=== PATIENT | male | born 1985 | race Caucasian/White ===

== ENCOUNTER 2020-11-19 10:56 | Outpatient (REF) | payer OTHER, SELFPAY ==
[2020-11-19 13:16] LABS: MANUAL DIFF FLAG NO
[2020-11-19 13:36] LABS: Basophils Percent Auto 0.8 % (0-2); Eosinophils Absolute Auto 0.1 X10*3/uL (0.0-0.4); Eosinophils Percent Auto 2.4 % (0-4); Hematocrit 40.9 % (42-52); Hemoglobin 13.7 g/dl (14.0-18.0); Imm Gran Abs Auto 0.01 X10*3/uL (0.00-0.03); Imm Gran Pct Auto 0.3 % (0.0-0.4); Mean Corpuscular HGB Conc 33.5 g/dl (31.0-36.0); Mean Corpuscular Hemoglobin 32.7 pg (27.0-33.0); Mean Corpuscular Volume 97.6 fL (80-98); Mean Platelet Volume 10.3 fL (9.4-12.4); Monocytes Absolute Auto 0.4 X10*3/uL (0.1-1.2); Monocytes Percent Auto 9.9 % (2-11); Neutrophils Absolute Auto 2.2 X10*3/uL (2.0-8.3); Neutrophils Percent Auto 58.6 % (45-73); Platelet Count 289 X10*3/uL (160-400); Red Blood Count 4.19 X10*6/uL (4.60-5.80); White Blood Count 3.7 X10*3/uL (4.8-10.8)
[2020-11-19 13:55] LABS: Alanine Aminotransferase 101 U/L (0-40); Alkaline Phosphatase 42 U/L (39-117); Anion Gap 20 (12-20); Aspartate Amino Transferase 69 U/L (5-37); Bilirubin Total 1.1 mg/dL (0.0-1.0); Blood Urea Nitrogen 5 mg/dL (9-16); C Reactive Protein 0.24 mg/dL (< or = 0.50); Calcium 9.6 mg/dL (8.4-10.2); Carbon Dioxide 18 mmol/L (22-29); Chloride 106 mmol/L (96-108); Estimated Glomerular Filt Rate > 60; Glucose Random 67 mg/dL (60-115); Potassium 3.8 mmol/L (3.3-5.1); Sodium 140 mmol/L (135-145); Total Protein 7.6 g/dL (6.5-8.0)
[2020-11-19 14:11] LABS: Free T4 (Free Thyroxine) 0.94 ng/dL (0.71-1.85); Thyroid Stimulating Hormone 0.54 uIU/mL (0.32-4.0)
[2020-11-24 15:51] LABS: Testosterone, Free 102.7 pg/mL (35.0-155.0); Testosterone, Total 590 ng/dL (250-1100)
== END 2020-11-19 10:57 | disposition home or self-care (01) ==
LOC: HO.10HDL 10:56
PROVIDERS: Visit Provider Internal Medicine
DX: E29.1 Testicular hypofunction (principal); R05 Cough; R00.2 Palpitations
CPT/HCPCS: 36415; 80053; 84146; 84402; 84403; 84439; 84443; 85025; 86140

== ENCOUNTER 2020-12-18 08:02 | Outpatient (REF) | payer OTHER, SELFPAY ==
[2020-12-19 20:41] LABS: Prolactin 32.4 ng/mL (2.0-18.0)
== END 2020-12-18 08:03 | disposition home or self-care (01) ==
LOC: HO.10HDL 08:02
PROVIDERS: PCP Internal Medicine; Visit Provider Internal Medicine
DX: E22.1 Hyperprolactinemia (principal)
CPT/HCPCS: 36415; 84146

== ENCOUNTER 2021-01-03 17:48 | Outpatient (REF) | payer OTHER, SELFPAY ==
--- NOTE | ~2021-01-03 | MR_ITS ---
MRI OF THE BRAIN WITHOUT IV CONTRAST INDICATION: Hyperprolactinemia. COMPARISON: None available. TECHNIQUE: Multiplanar multisequence MR imaging of the brain was obtained without IV contrast. FINDINGS: Nondiagnostic assessment for pituitary lesions given the lack of intravenous contrast. There is asymmetric tissue within the left sellar region and possibly the left cavernous sinus encasing the left cavernous ICA segment for which postcontrast imaging would be helpful in excluding an underlying pituitary adenoma. The infundibulum is midline and there is no mass effect on the optic nerve apparatus. There is no hydrocephalus, extra-axial surface collection, or herniation. Mild nonspecific T2 signal changes within the bifrontal white matter. The major flow voids at the skull base are preserved. There is no acute infarct on diffusion-weighted imaging. There is no intracranial hemorrhage on the gradient recalled echo acquisition. The cerebellar tonsils are normally positioned. The cerebellum and brainstem are normal. The craniocervical junction is normal. Osseous marrow signal intensity is homogenous. The visualized soft tissues are unremarkable. MR/MR head/brain wo con IMPRESSION: Nondiagnostic assessment for pituitary lesions given the lack of intravenous contrast. There is asymmetric tissue within the left sellar region and possibly the left cavernous sinus encasing the left cavernous ICA segment for which postcontrast imaging would be helpful in excluding an underlying pituitary adenoma. The infundibulum is midline and there is no mass effect on the optic nerve apparatus. Mild nonspecific T2 signal changes within the bifrontal white matter.
== END 2021-01-03 17:49 | disposition home or self-care (01) ==
LOC: HO.MRI 17:48
PROVIDERS: PCP Internal Medicine; Visit Provider Internal Medicine
DX: R86.1 Abnormal level of hormones in specimens from male genital organs (principal); E22.1 Hyperprolactinemia
CPT/HCPCS: 70551

== ENCOUNTER 2021-01-28 17:34 | Outpatient (REF) | payer OTHER, SELFPAY ==
--- NOTE | ~2021-01-28 | MR_ITS ---
EXAMINATION: MR BRAIN WITHOUT AND WITH CONTRAST CLINICAL INFORMATION: Hyperprolactinemia. Abnormal findings on prior noncontrast MR imaging imaging. COMPARISON: Brain MRI 01/03/2021. TECHNIQUE: Multiplanar MR imaging of the brain was performed without and with contrast. A total of 5 mL Gadavist was utilized for this examination. FINDINGS: Similar to the findings demonstrated on prior imaging there is an enhancing soft tissue that causes smooth expansion and remodeling of the floor of the sella turcica to the left of midline best depicted on coronal image 13 of 28 series 9. It is inconclusive whether there is cavernous sinus invasion. No carotid encasement. The overall height of the pituitary tissue within the sella turcica otherwise remains within limits of normal variation measuring 0.4 cm. The pituitary stalk deviates slightly to the right. No suprasellar mass effect or chiasmatic compression. Cavernous internal carotid artery flow voids are maintained. Postcontrast images of the whole brain reveal no abnormal mass or enhancement within the intracranial compartment. No intracranial mass effect or midline shift. Lateral and third ventricles are normal. No hydrocephalus. Midline structures including the cervicomedullary junction are normal. No acute bone marrow signal changes. No acute territorial infarct. Intracranial vascular flow voids are grossly maintained. There is no mastoid middle ear effusion. No active paranasal sinus disease. Globes and orbits are symmetric. MR/MR head/brain wo/w con IMPRESSION: As seen on prior imaging there is smooth expansion and remodeling of the floor the sella turcica to the left midline. 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 Although there is possible invasion of the left cavernous sinus there is no overt arterial encasement. No suprasellar mass effect or chiasmatic compression.
== END 2021-01-28 17:35 | disposition home or self-care (01) ==
LOC: HO.MRI 17:34
PROVIDERS: PCP Internal Medicine; Visit Provider Internal Medicine
DX: R86.1 Abnormal level of hormones in specimens from male genital organs (principal); E22.1 Hyperprolactinemia; R93.89 Abnormal findings on diagnostic imaging of other specified body structures
CPT/HCPCS: 70553; A9585

== ENCOUNTER 2021-07-15 09:53 | Outpatient (REF) | payer OTHER, SELFPAY ==
[2021-07-16 23:02] LABS: Prolactin 2.9 ng/mL (2.0-18.0)
== END 2021-07-15 09:54 | disposition home or self-care (01) ==
LOC: HO.LAB 09:53
PROVIDERS: Visit Provider Psychiatry & Neurology Neurology
DX: D35.2 Benign neoplasm of pituitary gland (principal)
CPT/HCPCS: 36415; 84146

== ENCOUNTER 2022-04-08 18:40 | Emergency (ER) | payer OTHER, SELFPAY ==
--- NOTE | ~2022-04-08 | XR_ITS ---
EXAMINATION: XR CHEST CLINICAL INFORMATION: Chest pain and sensation of fast heart rate COMPARISON: None TECHNIQUE: 2 views of the chest were obtained. FINDINGS: The lungs are clear. No airspace consolidation, pleural effusion, or pneumothorax. The cardiomediastinal silhouette is within normal limits. No acute osseous injury. XR/XR chest 2V IMPRESSION: No acute pulmonary process.
[2022-04-08 20:14] VITALS: BP 149/83; PULSE 84; RESP 18; TEMP 36.4; O2SAT 99; BMI 33.3
--- NOTE | 2022-04-08 20:14 | ECG_ITS ---
Test Reason : CP Blood Pressure : / mmHG Vent. Rate : 076 BPM Atrial Rate : 076 BPM P-R Int : 160 ms QRS Dur : 096 ms QT Int : 364 ms P-R-T Axes : 049 037 024 degrees QTc Int : 409 ms Normal sinus rhythm Normal ECG No previous ECGs available Referred By: Maria Guadalupe Valverde Electronically Signed By:BRITTANIE MOLINA
--- NOTE | 2022-04-08 20:14 | ED_ITS ---
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 Reports he has been having intermittent tingling to bilateral hands. Reports that he lives in [place] and is often traveling back and forth. Return back from [place] Thursday. Denies headaches, dizziness, change in vision, nausea vomiting, cough, shortness of breath, dyspnea on exertion, orthopnea, abdominal pain leg swelling or calf tenderness or any other symptoms complaints or concerns at this time. MD complaint: rapid heart beat, heart racing and palpitations Onset (ago): day(s) (Started today) Duration: constant Severity: mild Associated symptoms: chest pain and paresthesias Related Data Allergies Allergy/AdvReac Type Severity Reaction Status Date / Time No Known Allergies Allergy Verified 04/08/22 20:14 Review of Systems Review of Systems: Constitutional : No Weight loss, No Fever, No Chills, No Night Sweats, No Fatigue, No Malaise ENT/Mouth : No Hearing loss, No Ear Pain, No Nasal Congestion, No Sinus Pain, No Hoarseness, No sore throat, No Rhinorrhea, No Swallowing Difficulty Eyes: No Eye Pain, No Swelling, No Redness, No Foreign Body, No Discharge, No Vision Changes Cardiovascular : + Chest Pain, No SOB, No Dyspnea on Exertion, No Orthopnea, No Edema, + Palpitations Respiratory : No Cough, No Sputum, No Wheezing, No Smoke Exposure, No Dyspnea Gastrointestinal : No Nausea, No Vomiting, No Diarrhea, No Constipation, No abdominal Pain, No Hematochezia, No Melena Genitourinary : no irregular bleeding, No Dysuria, No Urinary Frequency, No Hematuria, No Urinary Incontinence, No Urgency, No Flank Pain, No Urinary Flow Changes, No Hesitancy Musculoskeletal : No joint pain, No Myalgias, No Joint Swelling Skin : No Skin Lesions, No rash Neuro : No Weakness, No Numbness, + Paresthesias, No Loss of Consciousness, No Dizziness, No Headache Psych : No Anxiety/Panic, No Depression, No SI/HI/AH/VH, No Social Issues, Heme/Lymph: No Bruising, No Bleeding,No Lymphadenopathy Endocrine : No Polyuria, No Polydipsia, No Temperature Intolerance Yes all other systems are reviewed and are negative FOR[facility], [facility] Past Medical History Attestation statement: The following information was validated with the patient. Source: old records reviewed and nursing notes reviewed Social History Social History Advance Directives: No Advance Directives Information Provided: No Physical Exam Vital Signs: Vital Signs: Last Vital Signs Temp 97.6 F 04/08/22 20:14 Pulse 84 04/08/22 20:14 Resp 18 04/08/22 20:14 BP 149/83 H 04/08/22 20:14 Pulse Ox 99 04/08/22 20:14 O2 Del Method 04/08/22 20:14 BMI result Body Mass Index 33.3 Vital signs reviewed. Blood pressure normal. Pulse normal. Respiration normal. Oxygen normal. Temperature normal. Appearance: Alert. Oriented X3. No acute distress. Head: Normal external exam. Normocephalic. Atraumatic. Eyes: PERRLA. EOMI. Conjunctiva and sclera normal. Eyelids normal. ENT: EAC normal. TM's Normal. Pharynx normal. Uvula midline. Moist mucous membranes. No lesions/ulcerations or masses noted on the tongue. Normal voice. No trismus noted. No drooling noted. No muffled voice noted. Neck: Normal inspection. Neck supple. FROM. No adenopathy. Thyroid Normal. No meningeal signs. CVS: Normal heart rate and rhythm. Heart sound normal. Pulses normal throughout. No murmurs/rales/gallops. Respiratory: No respiratory distress. Painless inspiration. Breath sounds normal. No wheezes/rales/rhonchi noted. Chest nontender. No accessory muscle usage noted or decreased air movement noted. Abdomen: Soft and nontender. Back: Full range of motion noted. Nontender. Skin: Skin warm and dry. Normal skin color. Normal skin turgor. No rashes/lesions/lacerations noted. Extremities: Extremities exhibit normal range of motion and nontender. Neuro: Oriented X 3. No motor deficit. No sensory deficit. Reflexes normal. Normal steady gait. No focal neuro deficits noted. CN's II-XII intact bilaterally? Vascular: + radial pulses. Normal cap refill. 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 Reports he has been having intermittent tingling to bilateral hands. Reports that he lives in [place] and is often traveling back and forth. Return back from [place] Thursday. Denies headaches, dizziness, change in vision, nausea vomiting, cough, shortness of breath, dyspnea on exertion, orthopnea, abdominal pain leg swelling or calf tenderness or any other symptoms complaints or concerns at this time. Plan: Will obtain labs, EKG, chest x-ray, COVID/RSV/flu swab. Patient will be sent back to the waiting room for further evaluation and treatment into the main ER. Patient is stable. Reevaluation(s) Reevaluation #1: Labs were obtained and reviewed and patient's labs were within normal limits. Patient negative for COVID/RSV/flu. Chest x-ray was within normal limits. EKG normal sinus rhythm with ventricular rate of 76 with a normal WA interval normal QRS duration normal QT/QTC interval. No acute ischemic change are noted. Although patient eloped. Medical Decision Making Lab Data MDM Lab Attestation statement: I reviewed the patient's lab results. Result Diagrams: 04/08/22 20:44 04/08/22 20:44 Labs: Lab Results 04/08/22 04/08/22 04/08/22 Range/Units 20:43 20:43 20:44 WBC 6.9 (4.8-10.8) X10*3/uL RBC 4.61 (4.60-5.80) X10*6/uL Hgb 15.1 (14.0-18.0) g/dl Hct 43.5 (42.0-52.0) % MCV 94.4 (80.0-98.0) fL MCH 32.8 (27.0-33.0) pg MCHC 34.7 (31.0-36.0) g/dl RDW 12.0 (11.0-16.0) % Plt Count 285 (160-400) X10*3/uL MPV 9.8 (9.4-12.4) fL Immature Gran % (Auto) 0.1 (0.0-0.4) % Neut % (Auto) 62.9 (45-73) % Lymph % (Auto) 27.2 (20-40) % Dade % (Auto) 7.6 (2-11) % Eos % (Auto) 1.6 (0-4) % Baso % (Auto) 0.6 (0-2) % Lymph # (Auto) 1.9 (1.2-4.9) X10*3/uL Dade # (Auto) 0.5 (0.1-1.2) X10*3/uL Eos # (Auto) 0.1 (0.0-0.4) X10*3/uL Baso # (Auto) 0.0 (0.0-0.2) X10*3/uL Abs Immat Gran (auto) 0.01 (0.00-0.03) X10*3/uL Absolute Neuts (auto) 4.3 (2.0-8.3) x10*3/uL Absolute Nucleated RBC 0.000 (0.0-0.012) X10*3/uL Nucleated RBC % (auto) 0.0 (0.0-0.2) /100WBC PT (10.0-13.1) SEC INR (0.9-1.1) Sodium (135-145) mmol/L Potassium (3.3-5.1) mmol/L Chloride (96-108) mmol/L Carbon Dioxide (22-29) mmol/L Anion Gap (12-20) BUN (9-16) mg/dL Creatinine (0.5-1.4) mg/dL Estim Creat Clear Calc Estimated GFR Random Glucose (60-115) mg/dL Calcium (8.4-10.2) mg/dL Magnesium (1.6-2.6) mg/dL Total Bilirubin (0.0-1.0) mg/dL AST (5-37) U/L ALT (0-40) U/L Alkaline Phosphatase (39-117) U/L Troponin I High Sens < 3.5 (<3.5-35.0) ng/L Total Protein (6.5-8.0) g/dL Albumin (3.5-5.0) g/dL Influenza Type A (PCR) NEGATIVE (Negative) Influenza Type B (PCR) NEGATIVE (Negative) RSV RNA Qual (PCR) NEGATIVE (Negative) SARS-CoV-2 RNA (RT-PCR) NEGATIVE (Negative) 04/08/22 04/08/22 Range/Units 20:44 20:44 WBC (4.8-10.8) X10*3/uL RBC (4.60-5.80) X10*6/uL Hgb (14.0-18.0) g/dl Hct (42.0-52.0) % MCV (80.0-98.0) fL MCH (27.0-33.0) pg MCHC (31.0-36.0) g/dl RDW (11.0-16.0) % Plt Count (160-400) X10*3/uL MPV (9.4-12.4) fL Immature Gran % (Auto) (0.0-0.4) % Neut % (Auto) (45-73) % Lymph % (Auto) (20-40) % Dade % (Auto) (2-11) % Eos % (Auto) (0-4) % Baso % (Auto) (0-2) % Lymph # (Auto) (1.2-4.9) X10*3/uL Dade # (Auto) (0.1-1.2) X10*3/uL Eos # (Auto) (0.0-0.4) X10*3/uL Baso # (Auto) (0.0-0.2) X10*3/uL Abs Immat Gran (auto) (0.00-0.03) X10*3/uL Absolute Neuts (auto) (2.0-8.3) x10*3/uL Absolute Nucleated RBC (0.0-0.012) X10*3/uL Nucleated RBC % (auto) (0.0-0.2) /100WBC PT 11.2 (10.0-13.1) SEC INR 1.0 (0.9-1.1) Sodium 139 (135-145) mmol/L Potassium 4.0 (3.3-5.1) mmol/L Chloride 106 (96-108) mmol/L Carbon Dioxide 23 (22-29) mmol/L Anion Gap 14 (12-20) BUN 15 (9-16) mg/dL Creatinine 1.15 (0.5-1.4) mg/dL Estim Creat Clear Calc 115.6 Estimated GFR > 60 Random Glucose 89 (60-115) mg/dL Calcium 9.6 (8.4-10.2) mg/dL Magnesium 2.1 (1.6-2.6) mg/dL Total Bilirubin 0.9 (0.0-1.0) mg/dL AST 21 D (5-37) U/L ALT 26 (0-40) U/L Alkaline Phosphatase 48 (39-117) U/L Troponin I High Sens (<3.5-35.0) ng/L Total Protein 7.5 (6.5-8.0) g/dL Albumin 5.0 (3.5-5.0) g/dL Influenza Type A (PCR) (Negative) Influenza Type B (PCR) (Negative) RSV RNA Qual (PCR) (Negative) SARS-CoV-2 RNA (RT-PCR) (Negative) Discharge Plan Discharge Clinical Impression: Chest pain Patient Disposition: Elopement Discharge Date/Time: 04/09/22 01:06
[2022-04-08 20:52] LABS: MANUAL DIFF FLAG NO
[2022-04-08 20:57] LABS: Basophils Percent Auto 0.6 % (0-2); Eosinophils Absolute Auto 0.1 X10*3/uL (0.0-0.4); Eosinophils Percent Auto 1.6 % (0-4); Hematocrit 43.5 % (42.0-52.0); Hemoglobin 15.1 g/dl (14.0-18.0); Imm Gran Abs Auto 0.01 X10*3/uL (0.00-0.03); Imm Gran Pct Auto 0.1 % (0.0-0.4); Lymphocytes Absolute Auto 1.9 X10*3/uL (1.2-4.9); Lymphocytes Percent Auto 27.2 % (20-40); Mean Corpuscular HGB Conc 34.7 g/dl (31.0-36.0); Mean Corpuscular Hemoglobin 32.8 pg (27.0-33.0); Mean Corpuscular Volume 94.4 fL (80.0-98.0); Mean Platelet Volume 9.8 fL (9.4-12.4); Monocytes Absolute Auto 0.5 X10*3/uL (0.1-1.2); Monocytes Percent Auto 7.6 % (2-11); Neutrophils Absolute Auto 4.3 x10*3/uL (2.0-8.3); Neutrophils Percent Auto 62.9 % (45-73); Platelet Count 285 X10*3/uL (160-400); Red Blood Count 4.61 X10*6/uL (4.60-5.80); White Blood Count 6.9 X10*3/uL (4.8-10.8)
[2022-04-08 21:01] LABS: Prothrombin Time 11.2 SEC (10.0-13.1)
[2022-04-08 21:22] LABS: Troponin-I High Sensitivity < 3.5 ng/L (<3.5-35.0)
[2022-04-08 21:25] LABS: Alanine Aminotransferase 26 U/L (0-40); Alkaline Phosphatase 48 U/L (39-117); Anion Gap 14 (12-20); Aspartate Amino Transferase 21 U/L (5-37); Blood Urea Nitrogen 15 mg/dL (9-16); Calcium 9.6 mg/dL (8.4-10.2); Carbon Dioxide 23 mmol/L (22-29); Chloride 106 mmol/L (96-108); Creatinine Clr Calc Pharmacy 115.6; Estimated Glomerular Filt Rate > 60; Glucose Random 89 mg/dL (60-115); Magnesium 2.1 mg/dL (1.6-2.6); Sodium 139 mmol/L (135-145); Total Protein 7.5 g/dL (6.5-8.0)
[2022-04-08 21:35] LABS: Influenza A PCR NEGATIVE (Negative); Influenza B PCR NEGATIVE (Negative); Resp Syncy Virus RNA Qual PCR NEGATIVE (Negative); SARS COV2 PCR INHOUSE NEGATIVE (Negative)
[2022-04-08 21:40] LABS: Bilirubin Total 0.9 mg/dL (0.0-1.0)
--- NOTE | 2022-04-08 23:47 | PC.NURSE ---
Pt called for triage reassessment, pt not in waiting room at this time.
--- NOTE | 2022-04-09 00:26 | PC.NURSE ---
PT called to triage desk, pt not in waiting room.
--- NOTE | 2022-04-09 01:05 | PC.NURSE ---
This RN called pt to come to triage, pt not in waiting room.
== END 2022-04-09 01:06 | disposition left against medical advice (07) ==
PROVIDERS: Physician Assistant Medical; Emergency Provider Emergency Medicine; PCP Internal Medicine
DX: I49.9 Cardiac arrhythmia, unspecified (principal); R00.2 Palpitations; R07.89 Other chest pain; Z20.822 Contact with and (suspected) exposure to COVID-19; Z79.899 Other long term (current) drug therapy
CPT/HCPCS: 0241U; 36415; 71046; 80053; 83735; 84484; 85025; 85610; 93005; 99283

== ENCOUNTER 2023-08-05 09:21 | Outpatient (REF) | payer OTHER, SELFPAY ==
[2023-08-06 07:28] LABS: Prolactin 12.3 ng/mL (2.0-18.0)
== END 2023-08-05 09:22 | disposition home or self-care (01) ==
LOC: HO.LAB 09:21
PROVIDERS: Visit Provider Psychiatry & Neurology Neurology
DX: D35.2 Benign neoplasm of pituitary gland (principal)
CPT/HCPCS: 36415; 84146

== ENCOUNTER 2023-08-19 13:40 | Outpatient (REF) | payer OTHER, SELFPAY ==
[2023-08-19 13:53] LABS: MANUAL DIFF FLAG NO
[2023-08-19 15:16] LABS: Basophils Percent Auto 0.6 % (0-2); Eosinophils Absolute Auto 0.1 X10*3/uL (0.0-0.4); Eosinophils Percent Auto 1.8 % (0-4); Hematocrit 42.7 % (42.0-52.0); Hemoglobin 14.8 g/dl (14.0-18.0); Imm Gran Abs Auto 0.02 X10*3/uL (0.00-0.03); Imm Gran Pct Auto 0.4 % (0.0-0.4); Lymphocytes Absolute Auto 1.6 X10*3/uL (1.2-4.9); Lymphocytes Percent Auto 31.2 % (20-40); Mean Corpuscular HGB Conc 34.7 g/dl (31.0-36.0); Mean Corpuscular Hemoglobin 33.2 pg (27.0-33.0); Mean Corpuscular Volume 95.7 fL (80.0-98.0); Monocytes Absolute Auto 0.4 X10*3/uL (0.1-1.2); Monocytes Percent Auto 7.3 % (2-11); Neutrophils Percent Auto 58.7 % (45-73); Platelet Count 272 X10*3/uL (160-400); Red Blood Count 4.46 X10*6/uL (4.60-5.80); Red Cell Distribution Width 12.2 % (11.0-16.0); White Blood Count 5.1 X10*3/uL (4.8-10.8)
[2023-08-19 15:30] LABS: Rheumatoid Factor < 13.0 IU/mL (<15.0)
[2023-08-19 15:52] LABS: Alanine Aminotransferase 36 U/L (0-40); Albumin Level 4.8 g/dL (3.5-5.0); Alkaline Phosphatase 40 U/L (39-117); Anion Gap 12 (12-20); Aspartate Amino Transferase 21 U/L (5-37); Bilirubin Total 1.2 mg/dL (0.0-1.0); Blood Urea Nitrogen 15 mg/dL (9-16); C Reactive Protein < 0.10 mg/dL (< or = 0.50); Calcium 9.4 mg/dL (8.4-10.2); Carbon Dioxide 26 mmol/L (22-29); Chloride 107 mmol/L (96-108); Cholesterol 202 mg/dL (<200); Estimated Glomerular Filt Rate > 60; Glucose Fasting 87 mg/dL (60-99); HDL Cholesterol 43 mg/dL (>40); LDL Cholesterol Calculated 139 mg/dL (<100); Potassium 4.3 mmol/L (3.3-5.1); Sodium 141 mmol/L (135-145); Total Protein 7.7 g/dL (6.5-8.0); Triglycerides 104 mg/dL (<150)
[2023-08-19 16:03] LABS: Erythrocyte Sedimentation Rate 4 MM/HR (0-15)
[2023-08-23 15:03] LABS: Testosterone, Free 82.4 pg/mL (35.0-155.0); Testosterone, Total 427 ng/dL (250-1100)
[2023-08-24 15:43] LABS: Anti Nuclear Antibody Screen NEGATIVE (NEGATIVE)
== END 2023-08-19 13:41 | disposition home or self-care (01) ==
LOC: HO.LAB 13:40
PROVIDERS: PCP Internal Medicine; Visit Provider Internal Medicine
DX: R63.5 Abnormal weight gain (principal)
CPT/HCPCS: 36415; 80053; 80061; 84402; 84403; 84439; 84443; 85025; 85652; 86038; 86140; 86431

== ENCOUNTER 2023-09-03 07:55 | Outpatient (REF) | payer OTHER, SELFPAY ==
--- NOTE | ~2023-09-03 | MR_ITS ---
EXAMINATION: MR BRAIN WITH AND WITHOUT CONTRAST CLINICAL INFORMATION: Prolactinoma COMPARISON: MRI brain 01/28/2021 TECHNIQUE: MRI of the brain was obtained using routine sequences before and following administration of intravenous contrast. A total of 5 mL of Gadavist was administered intravenously. FINDINGS: Stable slight expansile osseous remodeling along the left aspect of the sellar floor. No definite discrete hypoenhancing lesion is identified, noting background heterogeneous glandular parenchymal enhancement and motion artifact somewhat limits assessment. No definite cavernous sinus invasion is seen. The infundibulum inserts at the midline. Widely patent suprasellar cistern. No mass effect along the optic nerve apparatus. No acute infarct. No extra-axial fluid collection. The ventricles and sulci are normal in size and configuration without significant volume loss or hydrocephalus. Redemonstrated several nonspecific T2 FLAIR hyperintense foci in the right frontal subcortical white matter/centrum semiovale, including one which is somewhat ovoid and oriented orthogonally to the right lateral ventricle body. Possible punctate juxtacortical lesion versus artifact in the anterior left frontal lobe. No abnormal intraparenchymal or leptomeningeal enhancement. No significant mass effect or herniation pattern. The intracranial dural venous sinus and arterial flow voids are preserved. The orbits are grossly unremarkable. Increased moderate right and mild left maxillary sinus mucosal disease with retention cyst on the right. No mastoid effusion. Normal marrow signal. MR/MR head/brain wo/w con IMPRESSION: Stable slight expansile osseous remodeling along the left aspect of the sellar floor. No definite discrete hypoenhancing lesion is identified, noting background heterogeneous glandular parenchymal enhancement and motion artifact somewhat limits assessment.
[2023-09-03] MEDS: gadobutroL 7.5 ML VIAL IVPUSH (09:28)
== END 2023-09-03 07:56 | disposition home or self-care (01) ==
LOC: HO.MRI 07:55
PROVIDERS: PCP Internal Medicine; Visit Provider Psychiatry & Neurology Neurology
DX: D35.2 Benign neoplasm of pituitary gland (principal)
CPT/HCPCS: 70553; A9585